=== PATIENT | male | born 1995 | race Caucasian/White ===

== ENCOUNTER 2023-03-27 15:48 | Emergency (ER) | payer SELFPAY ==
--- NOTE | ~2023-03-27 | XR_ITS ---
EXAMINATION: XR chest 2V Exam Date/Time: 03/27/2023 16:33 CDT HISTORY: COUGHING UP BLOOD, HX OF STREP B IN LUNGS AND ASTHMA Comparison: . RESULT: Lines, tubes, and devices: None. Lungs and pleura: Diffuse reticulonodular opacities, with mild peribronchial cuffing. Biapical scarr ing. No focal consolidation, pleural effusion, or pneumothorax. Cardiomediastinal silhouette: Stable. Calcified left hilar nodes. Other: No acute osseous or upper abdominal finding. IMPRESSION: Pulmonary opacities may represent bronchiolitis, as can be seen with atypical infection, asthma, aspi ration, and small airways disease. Reviewed, dictated and finalized at location K. IMPRESSION: Pulmonary opacities may represent bronchiolitis, as can be seen with atypical i nfection, asthma, aspiration, and small airways disease.
[2023-03-27 15:55] VITALS: BP 125/75; PULSE 89; RESP 18; TEMP 36.6; O2SAT 98
--- NOTE | 2023-03-27 16:21 | ED.GENADULT ---
HPI - General Adult General Chief complaint: Upper Respiratory Infection Stated complaint: off and on fevers Source: patient Mode of arrival: ambulatory Limitations: no limitations History of Present Illness HPI narrative: Pt present for evaluation of sick symptoms for the past few weeks. He states he has experienced intermittent fevers, with Tmax 103.0. He has experienced nausea, vomiting, diarrhea, productive cough of yellow sputum and SOB. His girlfriend has been sick but he is not sure what symptoms she has experienced. Denies any urinary symptoms. He has a hx of tobacco use. He is not taking any medications to assist with his symptoms. He is requesting a note to excuse him from work. Related Data Allergies Allergy/AdvReac Type Severity Reaction Status Date / Time No Known Allergies Allergy Unverified 03/27/23 16:20 Review of Systems Review of Systems: CONSTITUTIONAL: Reports fever. Denies, chills, or sweats. EYES: Denies visual changes, redness, or discharge. ENT: Reports sore throat and bilateral otalgia. Denies rhinorrhea CARDIOVASCULAR: Denies chest pain, palpitations, or edema. RESPIRATORY: Reports cough and SOB GASTROINTESTINAL: Reports nausea, vomiting and diarrhea. GENITOURINARY: Denies dysuria or hematuria. SKIN: Denies rash or itching. MUSCULOSKELETAL: Denies back pain, joint pain, or myalgia. NEUROLOGIC: Denies headache, numbness, dizziness, or weakness. PSYCHIATRIC: Denies anxiety or depression. PMFSH Past Medical History Medical History No pertinent past medical history Surgical History Surgical History (Updated 03/27/23 @ 17:48 by Cornell Medina, [facility], ) No pertinent past surgical history Family History Family History Mother Family history non-contributory Social History Social History Smoking status: Current some day smoker Substance use: never Gender identity (if verbalized by the patient): Male Sexual Orientation (if Verbalized by the Patient): Straight or Heterosexual Spiritual care concerns: No Exam Narrative: GENERAL: Well-appearing, well-nourished, and in no acute distress. HEAD: Normocephalic, atraumatic. EYES: PERRLA and EOMI. ENT: Nares clear, no rhinorrhea or epistaxis. Mucous membranes moist. Oropharynx without tonsillar hypertrophy exudate or other lesions. Bilateral TMs pearly valdivia nonbulging NECK: Supple. No adenopathy or masses. No carotid bruits or JVD CHEST: Clear to auscultation. No respiratory distress. No wheezes rales or rhonchi HEART: Regular rate and rhythm. No murmur heard. Normal peripheral pulses. ABDOMEN: Soft, nontender, nondistended, normal active bowel sounds. EXTREMITIES: Normal range of motion. No edema. SKIN: Warm, dry, no rash. NEURO: No focal deficits. Alert and oriented x3. PSYCH: Normal mood and affect. Course Course Emergency Course: This is a 27-year-old male who presented for evaluation of fever. He is afebrile here. Chest x-ray was obtained and concerning for infectious process. Low clinical suspicion for aspiration pneumonia but will cover with abx as pt has experienced intermittent fever. D/C with augmentin and azithromycin. Follow up with primary provider. Go to ER for difficulty breathing. Pt in agreement with plan of care. Level of Care: Express Care Visit Vital Signs Vital signs: Vital Signs Temperature 36.6 C 03/27/23 15:55 Pulse Rate 89 03/27/23 15:55 Respiratory Rate 18 03/27/23 15:55 Blood Pressure 125/75 03/27/23 15:55 Pulse Oximetry 98 03/27/23 15:55 Oxygen Delivery Room Air 03/27/23 15:55 Temperature 36.6 C 03/27/23 15:55 Pulse Rate 89 03/27/23 15:55 Respiratory Rate 18 03/27/23 15:55 Blood Pressure 125/75 03/27/23 15:55 Pulse Oximetry 98 03/27/23 15:55 Oxygen Deliver
== END 2023-03-27 17:10 | disposition home or self-care (01) ==
PROVIDERS: Emergency Provider Nurse Practitioner
DX: J18.9 Pneumonia, unspecified organism (principal); F17.200 Nicotine dependence, unspecified, uncomplicated
CPT/HCPCS: 71046; 87081; 87880; 99203; G0463

== ENCOUNTER 2023-05-04 11:28 | Emergency (ER) | payer SELFPAY ==
--- NOTE | 2023-05-04 11:39 | ED.URI ---
HPI - URI/Sore Throat General Chief Complaint: Nausea/Vomiting/Diarrhea Stated Complaint: Cough/Blood Time Seen by Provider: 05/04/23 11:30 Source: patient and RN notes reviewed History of Present Illness HPI Narrative: Patient is a 27-year-old male who presents to urgent care with complaints of vomiting on Tuesday. Patient states he vomited blood a couple times after coughing. Patient denies any abdominal pain, nausea, vomiting or fever. Patient states that he has been keeping down fluids and denies any symptoms at this time. Patient does not have any history of alcohol abuse or GI bleed. Patient states that he is here for a work release to go back to work. No other acute complaints. No acute distress noted. Patient aware of the plan of care. Some parts of this dictation were generated by voice recognition software and may contain typographical and/or grammatical inaccuracies. Related Data Allergies Allergy/AdvReac Type Severity Reaction Status Date / Time No Known Allergies Allergy Unverified 03/27/23 16:20 Review of Systems Review of Systems: CONSTITUTIONAL: Denies fever, chills, or sweats. EYES: Denies visual changes, redness, or discharge. ENT: Denies rhinorrhea, congestion, sore throat, or otalgia. CARDIOVASCULAR: Denies chest pain, palpitations, or edema. RESPIRATORY: Denies cough or dyspnea. GASTROINTESTINAL: Denies abdominal pain, nausea, vomiting, or diarrhea. GENITOURINARY: Denies dysuria or hematuria. SKIN: Denies rash or itching. MUSCULOSKELETAL: Denies back pain, joint pain, or myalgia. NEUROLOGIC: Denies headache, numbness, or weakness. All other systems reviewed are negative, except as documented in HPI. [facility] Past Medical History Medical History (Updated 05/04/23 @ 11:52 by DM Velez) No pertinent past medical history Surgical History Surgical History (Updated 03/27/23 @ 17:48 by DM Simmons, ALYSSA) No pertinent past surgical history Family History Family History Mother Family history non-contributory Social History Social History Smoking status: Current some day smoker Substance use: never Gender identity (if verbalized by the patient): Male Sexual Orientation (if Verbalized by the Patient): Straight or Heterosexual Spiritual care concerns: No Comments At the time of my signature, I reviewed and agree with the nursing past medical, surgical, social, and family history. There is no relevant family history pertinent to the patient complaint. Exam Narrative: GENERAL: This is a well-nourished, well-developed patient, in no apparent distress. HEAD: normocephalic, atraumatic. EYES: PERRL. Sclera clear/white. Vision is grossly intact. EARS: External ears normal NOSE: External nose normal with no obvious nasal discharge, nares without redness, no rhinorrhea. THROAT: Mucous membranes moist, posterior pharynx clear. NECK: Neck supple CARDIOVASCULAR: Regular rate and rhythm RESPIRATORY: Clear to auscultation. Breath sounds equal bilaterally. No wheezes, rales, or rhonchi. GASTROINTESTINAL: Abdomen soft, non-tender, nondistended. Bowel sounds are active. No guarding. SKIN: warm, intact with no suspicious lesions or rash, good texture and turgor. NEURO: awake, alert, and oriented to person, place and time. There were no obvious focal neurologic abnormalities. EXTREMITIES: No clubbing, cyanosis, or edema. Course Course Level of Care: Express Care Visit Vital Signs Vital signs: Vital Signs Temperature 98 F 05/04/23 11:41 Pulse Rate 86 05/04/23 11:41 Respiratory Rate 16 05/04/23 11:41 Blood Pressure 121/74 05/04/23 11:41 Pulse Oximetry 100 05/04/23 11:41 Oxygen Delivery Room Air 05/04/23 11:41 Temperature 98 F 05/04/23 11:41 Pulse Rate 86 05/04/23 11:41 Respiratory Rate 16 05/04/23 11:41 Bloo
[2023-05-04 11:41] VITALS: BP 121/74; PULSE 86; RESP 16; TEMP 36.6; O2SAT 100
== END 2023-05-04 12:05 | disposition home or self-care (01) ==
PROVIDERS: Emergency Provider Nurse Practitioner Family
DX: B34.9 Viral infection, unspecified (principal); F17.200 Nicotine dependence, unspecified, uncomplicated
CPT/HCPCS: 99211; G0463

== ENCOUNTER 2023-05-16 12:32 | Emergency (ER) | payer SELFPAY ==
[2023-05-16 12:48] VITALS: BP 118/72; PULSE 85; RESP 16; TEMP 36.3; O2SAT 98
--- NOTE | 2023-05-16 13:10 | ED.GENADULT ---
HPI - General Adult General Chief complaint: Nausea/Vomiting/Diarrhea Stated complaint: cold /flu /ear Source: patient and RN notes reviewed History of Present Illness HPI narrative: 27 yo M presents to urgent care with complaints of right sided ear pain, intermittent, x 1 week. Pt states he is unable to sleep on the right side due to pain. Pt reports his pain is inside his and ear and around his tragus, when pin-pointing the pain. Pt states he had a fever of 101 F the first day of symptoms but nothing since. Pt reports having a cough x 2 weeks. Pt states he has coughed up blood but that has been going on for approximately 3 years and was evaluated by a lead systems engineer who told him he had asthma. Pt denies any abdominal pain, diarrhea, chest pain, or SOB. Related Data Allergies Allergy/AdvReac Type Severity Reaction Status Date / Time No Known Allergies Allergy Unverified 03/27/23 16:20 Review of Systems Review of Systems: Pertinent positives and pertinent negatives per HPI. [facility] Past Medical History Medical History (Updated 05/16/23 @ 13:11 by Fabiola Marin, [employer]) No pertinent past medical history Surgical History Surgical History (Updated 03/27/23 @ 17:48 by Cornell Medina, [facility], ) No pertinent past surgical history Family History Family History Mother Family history non-contributory Social History Social History Smoking status: Current some day smoker Substance use: never Gender identity (if verbalized by the patient): Male Sexual Orientation (if Verbalized by the Patient): Straight or Heterosexual Spiritual care concerns: No Comments At the time of my signature, I reviewed and agree with the nursing past medical, surgical, social, and family history. There is no relevant family history pertinent to the patient complaint. Exam Narrative: GENERAL: This is a well-nourished, well-developed patient, in no apparent distress. HEAD: normocephalic, atraumatic. EYES: Sclera clear/white. Vision is grossly intact. EARS: Tenderness to posterior tragus on right side. Canal is patent and erythremic. Cerumen occluding part of canal. TM that was visualized was erythremic. Left TM occluded with cerumen. NOSE: External nose normal with no obvious nasal discharge, nares without redness, no rhinorrhea. THROAT: Mucous membranes moist, posterior pharynx clear. NECK: Neck supple, non-tender without lymphadenopathy, masses or thyromegaly. CARDIOVASCULAR: Regular rate and rhythm without murmurs, gallops, or rubs. RESPIRATORY: Clear to auscultation. Breath sounds equal bilaterally. No wheezes, rales, or rhonchi. GASTROINTESTINAL: Abdomen soft, non-tender, nondistended. Bowel sounds are active. No hepato-splenomegaly, or palpable masses. No guarding. SKIN: warm, intact with no suspicious lesions or rash, good texture and turgor. NEURO: awake, alert, and oriented to person, place and time. There were no obvious focal neurologic abnormalities. Course Course Level of Care: Express Care Visit Vital Signs Vital signs: Vital Signs Temperature 97.4 F L 05/16/23 12:48 Pulse Rate 85 05/16/23 12:48 Respiratory Rate 16 05/16/23 12:48 Blood Pressure 118/72 05/16/23 12:48 Pulse Oximetry 98 05/16/23 12:48 Oxygen Delivery Room Air 05/16/23 12:48 Temperature 97.4 F L 05/16/23 12:48 Pulse Rate 85 05/16/23 12:48 Respiratory Rate 16 05/16/23 12:48 Blood Pressure 118/72 05/16/23 12:48 Pulse Oximetry 98 05/16/23 12:48 Oxygen Delivery Room Air 05/16/23 12:48 Reviewed Medical Decision Making MDM Narrative Medical decision making narrative: Take antibiotics as directed. May given ibuprofen and/or Tylenol as needed for pain and/or fever. Follow up with primary care provider in 7-10 days to have ear rechecked. Pt given zofran Rx to take prn for his v
== END 2023-05-16 13:15 | disposition home or self-care (01) ==
PROVIDERS: Emergency Provider Nurse Practitioner Family
DX: H66.91 Otitis media, unspecified, right ear (principal)
CPT/HCPCS: 99213; G0463

== ENCOUNTER 2023-07-25 15:20 | Emergency (ER) | payer SELFPAY ==
--- NOTE | 2023-07-25 15:29 | ED.NAVMDI ---
HPI - Nausea/Vomiting/Diarrhea General Chief complaint: Nausea/Vomiting/Diarrhea Stated complaint: nausea/diarrhea Source: patient and RN notes reviewed History of Present Illness HPI Narrative: 27 yo M presents to urgent care with complaints of N/V/D since Tuesday. Pt states he was running a fever from Tuesday until this morning when it broke on it's own. Pt reports generalized abdominal soreness and contributes this to vomiting. Pt states he lost count on how many times he has vomited. Pt reports explosive diarrhea. Pt states he was dizzy yesterday. Denies anyone else in the house being sick. Related Data Allergies Allergy/AdvReac Type Severity Reaction Status Date / Time No Known Allergies Allergy Unverified 03/27/23 16:20 Review of Systems Review of Systems: CONSTITUTIONAL: Denies fever, chills, or sweats. EYES: Denies visual changes, redness, or discharge. ENT: Denies otalgia and sore throat CARDIOVASCULAR: Denies chest pain, palpitations, or edema. RESPIRATORY: Denies cough or dyspnea. GASTROINTESTINAL: Reports abdominal pain, nausea, vomiting, and diarrhea. GENITOURINARY: Denies dysuria or hematuria. SKIN: Denies rash or itching. MUSCULOSKELETAL: Denies back pain, joint pain, or myalgia. NEUROLOGIC: Denies headache, numbness, or weakness. Pertinent positives per HPI. [facility] Past Medical History Medical History (Updated 07/25/23 @ 16:07 by Fabiola Marin, PLATFORM ENGINEER) No pertinent past medical history Surgical History Surgical History (Updated 03/27/23 @ 17:48 by Cornell Medina, [facility], ) No pertinent past surgical history Family History Family History Mother Family history non-contributory Social History Social History Smoking status: Current some day smoker Substance use: never Gender identity (if verbalized by the patient): Male Sexual Orientation (if Verbalized by the Patient): Straight or Heterosexual Spiritual care concerns: No Comments At the time of my signature, I reviewed and agree with the nursing past medical, surgical, social, and family history. There is no relevant family history pertinent to the patient complaint. Exam Narrative: GENERAL: This is a well-nourished, well-developed patient, in no apparent distress. HEAD: normocephalic, atraumatic. EYES: Sclera clear/white. Vision is grossly intact. EARS: External ears normal, auditory canals clear and without drainage. Hearing grossly intact. NOSE: External nose normal with no obvious nasal discharge, nares without redness, no rhinorrhea. THROAT: Mucous membranes moist, posterior pharynx clear. NECK: Neck supple, non-tender without lymphadenopathy, masses or thyromegaly. CARDIOVASCULAR: Regular rate and rhythm without murmurs, gallops, or rubs. RESPIRATORY: Clear to auscultation. Breath sounds equal bilaterally. No wheezes, rales, or rhonchi. GASTROINTESTINAL: Abdomen soft,tender to the touch everywhere and painful when pt sits up straight. SKIN: warm, intact with no suspicious lesions or rash, good texture and turgor. NEURO: awake, alert, and oriented to person, place and time. There were no obvious focal neurologic abnormalities. Course Course Level of Care: Express Care Visit Vital Signs Vital signs: Vital Signs Temperature 98.0 F 07/25/23 15:30 Pulse Rate 101 H 07/25/23 15:30 Respiratory Rate 16 07/25/23 15:30 Blood Pressure 120/77 07/25/23 15:30 Pulse Oximetry 99 07/25/23 15:30 Oxygen Delivery Room Air 07/25/23 15:30 Temperature 98.0 F 07/25/23 15:30 Pulse Rate 101 H 07/25/23 15:30 Respiratory Rate 16 07/25/23 15:30 Blood Pressure 120/77 07/25/23 15:30 Pulse Oximetry 99 07/25/23 15:30 Oxygen Delivery Room Air 07/25/23 15:30 Reviewed MDM - Nausea/Vomiting/Diarrhea MDM Narrative Medical decision making narrative: You've been diag
[2023-07-25 15:30] VITALS: BP 120/77; PULSE 101; RESP 16; TEMP 36.7; O2SAT 99
[2023-07-25] MEDS: ONDANSETRON HCL ODT 4 MG TABLET PO (16:08)
== END 2023-07-25 16:37 | disposition home or self-care (01) ==
PROVIDERS: Emergency Provider Nurse Practitioner Family
DX: K52.9 Noninfective gastroenteritis and colitis, unspecified (principal); F17.200 Nicotine dependence, unspecified, uncomplicated
CPT/HCPCS: 99213; A9270; G0463

== ENCOUNTER 2023-09-03 14:13 | Emergency (ER) | payer SELFPAY ==
[2023-09-03 14:33] VITALS: BP 121/80; PULSE 96; RESP 16; TEMP 36.3; O2SAT 100
--- NOTE | 2023-09-03 15:51 | ED.NAVMDI ---
HPI - Nausea/Vomiting/Diarrhea General Chief complaint: Nausea/Vomiting/Diarrhea Stated complaint: vomiting,diarrhea Time Seen by Provider: 09/03/23 15:35 Source: patient, RN notes reviewed and old records reviewed Mode of arrival: ambulatory Limitations: no limitations History of Present Illness HPI Narrative: 27 year old male presents [facility] care with complaints of being ill since Tuesday with diarrhea and vomiting, states no further vomiting since Tuesday but has continued to have diarrhea and he has had to miss work for 3 days.Patient reports that he had a fever up to 101.5F on for which he took Tylenol and has not had any further fever. Patient reports that he has no abdominal pain, Patient reports that he knows of no known sick contacts, has not taken any Imodium for diarrhea. Patient is here for note so he can go back to work today.Patient reports that he is eating and drinking well denies any nausea. MD elicited complaint: vomiting and diarrhea Onset (ago): day(s) (3-4 days) Description of vomiting: food contents Description of diarrhea: watery Associated nausea: No Associated abdominal pain: No Treatment prior to arrival: other (Tylenol 2 days ago nothing since) Related Data Allergies Allergy/AdvReac Type Severity Reaction Status Date / Time No Known Allergies Allergy Unverified 03/27/23 16:20 Review of Systems Review of Systems: CONSTITUTIONAL: Denies recent fever, chills, or sweats. ENT: Denies rhinorrhea, congestion, sore throat, or otalgia. CARDIOVASCULAR: Denies chest pain, palpitations, or edema. RESPIRATORY: Denies cough or dyspnea. GASTROINTESTINAL: Reports no abdominal pain, no nausea, no further vomiting for past 3 days, positive for diarrhea. GENITOURINARY: Denies dysuria or hematuria. SKIN: Denies rash or itching. MUSCULOSKELETAL: Denies back pain, joint pain, or myalgia. NEUROLOGIC: Denies headache, numbness, or weakness. All systems reviewed & are unremarkable except as noted in HPI and below PMFSH Past Medical History Medical History No pertinent past medical history Surgical History Surgical History (Updated 09/05/23 @ 15:37 by Breanna Pompa NP) History of surgical removal of lesion removal of facial lesion near left eye Family History Family History Mother Family history non-contributory Social History Social History Smoking status: Current some day smoker Substance use: never Gender identity (if verbalized by the patient): Male Sexual Orientation (if Verbalized by the Patient): Straight or Heterosexual Spiritual care concerns: No Comments At time of signature, agree with nursing past medical, surgical, social and family history. There is no relevant family history pertinent to the presenting complaint Exam Narrative: GENERAL: Well-appearing, well-nourished, and in no acute distress. HEAD: Normocephalic, atraumatic. EYES: PERRLA, conjunctivae clear, and EOMI. ENT: Nares clear. Mucous membranes moist. Oropharynx without edema, erythema, or lesions. Tonsils not enlarged and without exudate. NECK: Supple. No lymphadenopathy CHEST: Speaks in full sentences. No respiratory distress.SAO2 100% on room air HEART: Regular rate and rhythm. ABDOMEN: Soft, flat, nondistended. No guarding, rebound tenderness, or rigid. No pulsatilla masses. Bowel sounds present in all four quadrants. No organomegaly. Negative Blackman?s sign. No periumbilical tenderness.No McBurney point tenderness, No Supra public tenderness or distension. Good femoral pulses bilaterally. No hernia noted. No scars or surface trauma. episodes of diarrhea. SKIN: Warm, dry, no rash. NEURO:? Alert and oriented x3. PSYCH: Normal mood and affect Course Course Emergency Course: Patient is aware of diagnosis, unders
== END 2023-09-03 16:00 | disposition home or self-care (01) ==
PROVIDERS: Emergency Provider Registered Nurse
DX: K52.9 Noninfective gastroenteritis and colitis, unspecified (principal); F17.200 Nicotine dependence, unspecified, uncomplicated
CPT/HCPCS: 99213; G0463

== ENCOUNTER 2023-10-19 15:28 | Emergency (ER) | payer SELFPAY ==
[2023-10-19 15:35] VITALS: BP 123/81; PULSE 85; RESP 16; TEMP 36.3; O2SAT 96
--- NOTE | 2023-10-19 15:48 | ED.NAVMDI ---
HPI - Nausea/Vomiting/Diarrhea General Chief complaint: Nausea/Vomiting/Diarrhea Stated complaint: nausea/diarrhea Time Seen by Provider: 10/19/23 15:59 Source: patient and RN notes reviewed Mode of arrival: ambulatory Limitations: no limitations History of Present Illness HPI Narrative: 27-year-old male presents concern for nausea, vomiting, diarrhea 5 days. He reports he had COVID 3 weeks ago. He reports he is urinating at least once every 8 hours. He denies any bloody vomit or stool. Reports he missed work and needs a work note. MD elicited complaint: nausea, vomiting and diarrhea Related Data Allergies Allergy/AdvReac Type Severity Reaction Status Date / Time No Known Allergies Allergy Unverified 03/27/23 16:20 Review of Systems Review of Systems: CONSTITUTIONAL: Reports malaise. Denies chills, sweats, or fever. ENT: Denies rhinorrhea, congestion, sinus pain, otalgia or sore throat. CARDIOVASCULAR: Denies chest pain, palpitations, or edema. RESPIRATORY: Denies cough or dyspnea. GASTROINTESTINAL: Denies abdominal pain, bloody, or mucous stools. Reports nausea, vomiting, diarrhea GENITOURINARY: Denies dysuria or hematuria. MUSCULOSKELETAL: Reports myalgia. NEUROLOGIC: Denies headache. All systems reviewed & are unremarkable except as noted in HPI and below PMFSH Past Medical History Medical History (Updated 10/19/23 @ 16:08 by Ines Bhatt NP) No pertinent past medical history Surgical History Surgical History (Updated 09/05/23 @ 15:37 by Breanna Pompa NP) History of surgical removal of lesion removal of facial lesion near left eye Family History Family History Mother Family history non-contributory Social History Social History Smoking status: Current some day smoker Substance use: never Gender identity (if verbalized by the patient): Male Sexual Orientation (if Verbalized by the Patient): Straight or Heterosexual Spiritual care concerns: No Comments At time of signature, agree with nursing past medical, surgical, social and family history. There is no relevant family history pertinent to the presenting complaint Exam Narrative: GENERAL: Well-appearing, well-nourished, and in no acute distress. HEAD: Normocephalic, atraumatic. EYES: PERRLA, conjunctivae clear, and EOMI. ENT: Nares clear. Mucous membranes moist. Oropharynx without edema, erythema, or lesions. Tonsils not enlarged and without exudate. NECK: Supple. No lymphadenopathy CHEST: Speaks in full sentences. No respiratory distress. HEART: Regular rate and rhythm. ABDOMEN: Soft, flat, nondistended, nontender. No guarding, rebound tenderness, or rigidity. No pulsatile masses. Bowel sounds present in all four quadrants. No organomegaly. Negative Blackman?s sign. No periumbilical tenderness. No scars or surface trauma. SKIN: Warm, dry, no rash. NEURO: Alert and oriented x3. PSYCH: Normal mood and affect Course Course Emergency Course: Discussed with patient following up with GI doctor since this is the 3rd episode of nausea and vomiting he has had and 70 months. Patient reports he does not have insurance and will not have insurance today's been it job a year. Patient is aware of diagnosis, understands and agrees to treatment plan. Anticipatory guidance given. Patient agrees to follow-up as directed and is aware of reasons to seek care at the emergency department. Portions of this record may have been created with voice recognition software Level of Care: Express Care Visit Vital Signs Vital signs: Vital Signs Temperature 97.3 F L 10/19/23 15:35 Pulse Rate 85 10/19/23 15:35 Respiratory Rate 16 10/19/23 15:35 Blood Pressure 123/81 10/19/23 15:35 Pulse Oximetry 96 10/19/23 15:35 Oxygen Delivery Room Air 10/19/23 15:35 Temperature 97.3 F L 10/19/23 15:35 Pulse Rate
== END 2023-10-19 16:14 | disposition home or self-care (01) ==
PROVIDERS: Emergency Provider Nurse Practitioner
DX: R11.2 Nausea with vomiting, unspecified (principal); F17.200 Nicotine dependence, unspecified, uncomplicated
CPT/HCPCS: 99213; G0463

== ENCOUNTER 2024-05-01 15:15 | Emergency (ER) | payer SELFPAY ==
[2024-05-01 15:28] VITALS: BP 115/62; PULSE 89; RESP 16; TEMP 36.3; O2SAT 97
--- NOTE | 2024-05-01 15:40 | ED.GENADULT ---
HPI - General Adult General Chief complaint: Syncope Stated complaint: Passed Out Source: patient Mode of arrival: ambulatory Limitations: no limitations History of Present Illness HPI narrative: Pt presents requesting a note to allow him to return to work. He works at [employer] and states he had a syncopal episode yesterday. He states he was experiencing dizziness when his vision went black and he passed out. He was taken to the clinic associated with his employer and was then transferred to the ER. BS was checked and in 130's. He states he has an EKG and lab work performed there and was discharged. His employer advised that he get clearance from a medical provider to allow him to return to work. He attempted to establish care with a primary care provider but they cannot see him until the middle of next month. Of note, he reports dizziness on and off for the last several weeks. He also reports a migraine headache. No history of headaches. He states his pain is in the frontal and bilateral parietal regions, without descriptive quality and rated 4/10 in severity. No chest pain and shortness of breath. Denies illicit drug use. Denies underlying medical problems. Related Data Allergies Allergy/AdvReac Type Severity Reaction Status Date / Time No Known Allergies Allergy Unverified 03/27/23 16:20 Review of Systems Review of Systems: CONSTITUTIONAL: Denies fever, chills, or sweats. EYES: Denies visual changes, redness, or discharge. ENT: Denies rhinorrhea, congestion, sore throat, or otalgia. CARDIOVASCULAR: Denies chest pain, palpitations, or edema. RESPIRATORY: Denies cough or dyspnea. GASTROINTESTINAL: Denies abdominal pain, nausea, vomiting, or diarrhea. GENITOURINARY: Denies dysuria or hematuria. SKIN: Denies rash or itching. MUSCULOSKELETAL: Denies back pain, joint pain, or myalgia. NEUROLOGIC: Reports recent syncope. Reports headache and dizziness. PSYCHIATRIC: Denies anxiety or depression. [facility] Past Medical History Medical History No pertinent past medical history Surgical History Surgical History History of surgical removal of lesion removal of facial lesion near left eye Family History Family History Mother Family history non-contributory Social History Social History Smoking status: Current some day smoker Tobacco type: e-cigarettes/vaping Alcohol intake: former Substance use: never Gender identity (if verbalized by the patient): Male Sexual Orientation (if Verbalized by the Patient): Straight or Heterosexual Spiritual care concerns: No Exam Narrative: GENERAL: Well-appearing, well-nourished, and in no acute distress. HEAD: Normocephalic, atraumatic. EYES: PERRLA and EOMI. ENT: Nares clear, no rhinorrhea or epistaxis. Mucous membranes moist. Oropharynx without tonsillar hypertrophy exudate or other lesions. Bilateral TMs pearly valdivia nonbulging NECK: Supple. No adenopathy or masses. No carotid bruits or JVD CHEST: Clear to auscultation. No respiratory distress. No wheezes rales or rhonchi HEART: Regular rate and rhythm. No murmur heard. Normal peripheral pulses. ABDOMEN: Soft, nontender, nondistended, normal active bowel sounds. EXTREMITIES: Normal range of motion. No edema. SKIN: Warm, dry, no rash. NEURO: No focal deficits. Alert and oriented x3. PSYCH: Normal mood and affect. Course Course Emergency Course: This is a 28-year-old male that presented requesting a note to allow him to return to work. Unfortunately a we do not have the diagnostic capabilities to provide him with clearance. I recommended he follow up with primary care provider. I will give him the number of the on-call provider. He has new onset headaches and dizzines
== END 2024-05-01 15:43 | disposition home or self-care (01) ==
PROVIDERS: Emergency Provider Nurse Practitioner
DX: R55 Syncope and collapse (principal); R42 Dizziness and giddiness; R51.9 Headache, unspecified; F17.290 Nicotine dependence, other tobacco product, uncomplicated
CPT/HCPCS: 99211; G0463